=== PATIENT | male | born 1980 | race African-American/Black ===

== ENCOUNTER 2019-06-21 09:57 | Inpatient (IN) | payer MEDICAID ==
[~2019-06-21] VITALS: Ht 172.7 cm; Wt 110.0 kg
[2019-06-21] MEDS ORDERED: normal saline 1000ML IV soln IVB ONE (10:05)
--- NOTE | 2019-06-21 10:35 | NUR ---
Patient to CT
[2019-06-21 10:37] LABS: EOSINOPHILS # (AUTO) 0.1 X10'3 (0-0.9); EOSINOPHILS % (AUTO) 1.7 % (0-6); HEMOGLOBIN 13.4 g/dl (14.0-17.9); LYMPHOCYTES % (AUTO) 18.6 % (21-51); MEAN CORPUSCULAR HEMOGLOBIN 32.2 PG (27.0-31.0); MEAN CORPUSCULAR HGB CONC 32.6 g/dL (33.0-36.5); MEAN CORPUSCULAR VOLUME 98.9 FL (78-98); MEAN PLATELET VOLUME 9.2 FL (7.4-10.4); MONOCYTES # (AUTO) 0.5 X10'3 (0-0.9); MONOCYTES % (AUTO) 8.8 % (2-12); NEUTROPHILS # (AUTO) 3.6 X10'3 (1.8-7.7); NEUTROPHILS % (AUTO) 69.9 % (42-75); PLATELET COUNT 230 X10'3 (140-440); RED BLOOD COUNT 4.15 X10'6 (4.70-6.10); RED CELL DISTRIBUTION WIDTH 14.5 % (11.5-14.5); WHITE BLOOD COUNT 5.2 X10'3 (4.5-11.0)
[2019-06-21 10:47] LABS: ALBUMIN 2.8 G/DL (3.4-5.0); ANION GAP 15 (8-16); BILIRUBIN,TOTAL 0.3 MG/DL (0.1-1.0); BLOOD UREA NITROGEN 45 MG/DL (7-18); BUN/CREATININE RATIO 7.6 (5.4-32.0); CALCIUM 8.6 MG/DL (8.5-10.1); CHLORIDE 108 MMOL/L (99-107); CREATININE 5.94 MG/DL (0.60-1.10); GLUCOSE 98 MG/DL (70-104); POTASSIUM 4.6 MMOL/L (3.5-5.1); SODIUM 140 MMOL/L (135-145); TOTAL CARBON DIOXIDE 17.5 MMOL/L (24-32); TOTAL PROTEIN 6.3 G/DL (6.4-8.2); eGFR 11 ML/MIN
[2019-06-21 10:48] LABS: ALANINE AMINOTRANSFERASE 38 U/L (12-78); ALBUMIN/GLOBULIN RATIO 0.8 (1.1-1.5); ALKALINE PHOSPHATASE 90 IU/L (46-116); ASPARTATE AMINO TRANSFERASE 31 U/L (10-37)
--- NOTE | 2019-06-21 10:58 | NUR ---
Patient back from CT. Urine sample collected and sent to lab.
[2019-06-21] MEDS ORDERED: NO HOME MEDS (11:21)
[2019-06-21 11:23] LABS: URINE AMPHETAMINE SCREEN NEGATIVE (Neg); URINE BARBITUATE SCREEN NEGATIVE (Neg); URINE BENZODIAZEPINES SCREEN NEGATIVE (Neg); URINE CANNABINOID SCREEN POSITIVE (Neg); URINE COCAINE SCREEN NEGATIVE (Neg); URINE METHADONE SCREEN NEGATIVE (Neg); URINE OPIATE SCREEN NEGATIVE (Neg); URINE PHENCYCLIDINE SCREEN NEGATIVE (Neg)
[2019-06-21 11:26] LABS: CLARITY,URINE CLEAR (Clear); COLOR,URINE STRAW (Yellow); GLUCOSE, URINE NEGATIVE (Neg); KETONES,URINE NEGATIVE (Neg); LEUKOCYTE ESTERASE ,URINE NEGATIVE (Neg); NITRITES, URINE NEGATIVE (Neg); OCCULT BLOOD,URINE SMALL (Neg); PROTEIN,URINE 100 mg/dl (Neg); UROBILINOGEN,URINE 0.2 E.U/dL (0.2-1.0)
[2019-06-21 11:28] LABS: UA COLLECTION TYPE CLN CATCH MIDSTREAM
[2019-06-21 11:33] LABS: BACTERIA,URINE NONE SEEN /HPF (Neg); RBC,URINE 0-2 /HPF (0-2); SQUAMOUS EPITHELIAL CELL,UR FEW /LPF (FEW); WBC,URINE 0-4 /HPF (0-4)
[2019-06-21] MEDS ORDERED: mag hydrox/Alum hydrox/simeth 30ml oral suspension PO PRN (11:50)
[2019-06-21] MEDS ORDERED: acetaminophen 650mg rectal suppository RC PRN (11:50)
[2019-06-21] MEDS ORDERED: HYDROcodone/acetaminophen 10/325mg tab PO PRN (11:50)
[2019-06-21] MEDS ORDERED: magnesium hydroxide 30ml (MOM) UD suspension PO PRN (11:50)
[2019-06-21] MEDS ORDERED: HYDROcodone/acetaminophen 5mg/325mg tablet PO PRN (11:50)
[2019-06-21] MEDS ORDERED: acetaminophen 325mg tablet PO PRN (11:50)
[2019-06-21] MEDS ORDERED: bisacodyl 10mg suppository rectal RC PRN (11:50)
[2019-06-21] MEDS ORDERED: diphenhydrAMINE 25mg capsule PO PRN (11:50)
[2019-06-21] MEDS ORDERED: magnesium Cl slow-release 64mg tablet PO PRN (11:50)
[2019-06-21] MEDS ORDERED: ondansetron/PF 4mg/2ml inj IV PRN (11:50)
[2019-06-21] MEDS ORDERED: magnesium 4gm in 100ml NS 100 ML IV PRN (11:50)
[2019-06-21] MEDS ORDERED: potassium CL 10mEq/100ml bag 100 ML IV PRN ×2 (11:50)
[2019-06-21] MEDS ORDERED: potassium Cl 20 mEq SR tablet PO PRN ×2 (11:50)
[2019-06-21] MEDS ORDERED: magnesium 2GM in 50ml NS 50 ML IV PRN (11:50)
[2019-06-21] MEDS ORDERED: amLODIPine 5mg tablet PO SCH (11:55)
--- NOTE | 2019-06-21 11:58 | NUR ---
Vascular called and requests NPO after midnight order placed.
[2019-06-21 12:16] LABS: HEMOGLOBIN A1C 5.6 % (4.5-6.2)
[2019-06-21] MEDS: sodium bicarbonate (8.4%) inj. 75 MEQ in dextrose 5%-water 500 ML IV SCH ×2 (12:34→19:31)
[2019-06-21] MEDS: labetalol 100mg tablet PO SCH ×2 (12:36→21:28)
--- NOTE | 2019-06-21 13:15 | NUR ---
assumed care of pt from Julio C MADRID
--- NOTE | 2019-06-21 14:14 | NUR ---
satellite dish technician at bedside
--- NOTE | 2019-06-21 14:40 | NUR ---
Patient in room ERIC 340. I have received report from ARIEL MADRID and had the opportunity to ask questions and assume patient care.
[2019-06-21 14:51] VITALS: BP 174/104
[2019-06-21 16:20] VITALS: BP 175/118
--- NOTE | 2019-06-21 16:22 | NUR ---
PAGER ID: [phone] MESSAGE: [id number] RE: MA[facility] 340B NEW ER ADMIT, FYI BP STILL 175/118, PT REPORTS ETOH DAILY FOR 2.5 YEARS.
[2019-06-21] MEDS ORDERED: haloperidol 5mg tablet PO PRN (16:25)
[2019-06-21] MEDS ORDERED: hydrALAZINE 20mg/ml inj. IV PRN (16:25)
[2019-06-21] MEDS ORDERED: thiamine inj. 100 MG in normal saline 100ml IV soln 100 ML IV ONE (16:25)
[2019-06-21] MEDS ORDERED: hydrALAZINE 20mg/ml inj. IV ONE (16:25)
[2019-06-21] MEDS ORDERED: cloNIDine 0.1 mg tablet PO PRN (16:25)
[2019-06-21] MEDS ORDERED: haloperidol lactate 5mg/ml inj IM PRN (16:25)
[2019-06-21] MEDS ORDERED: amLODIPine 5mg tablet PO ONE (16:25)
[2019-06-21] MEDS ORDERED: LORazepam 2 mg/ml vial IV PRN (16:25)
--- NOTE | 2019-06-21 18:00 | NUR ---
Problems reprioritized. Patient report given, questions answered & plan of care reviewed with PAT RN.
[2019-06-21 19:00] VITALS: BP 137/80
[2019-06-21] MEDS: acetaminophen 325mg tablet PO PRN (19:27)
--- NOTE | 2019-06-21 19:30 | NUR ---
pt state he normally goes small, frequent amounts Addendum: 06/21/19 at 3778 by Doris Carrizales RN Amended: Links added.
[2019-06-21] MEDS: K and/or MAG REPLACEMENT MC SCH (20:00)
[2019-06-21] MEDS: heparin, porcine 5000 units/ml vial SQ SCH (21:29)
[2019-06-21 22:14] VITALS: BP 128/66
[2019-06-21 23:49] LABS: CLARITY,URINE CLEAR (Clear); COLOR,URINE YELLOW (Yellow); GLUCOSE, URINE NEGATIVE (Neg); KETONES,URINE NEGATIVE (Neg); LEUKOCYTE ESTERASE ,URINE NEGATIVE (Neg); NITRITES, URINE NEGATIVE (Neg); OCCULT BLOOD,URINE TRACE-INTACT (Neg); PH,URINE 6.5 (4.8-8.0); PROTEIN,URINE 100 mg/dl (Neg); UROBILINOGEN,URINE 0.2 E.U/dL (0.2-1.0)
[2019-06-21 23:51] LABS: TOTAL PROTEIN,URINE RANDOM 161.5 MG/DL
[2019-06-21 23:55] LABS: UA COLLECTION TYPE CLN CATCH MIDSTREAM
[2019-06-21 23:58] LABS: BACTERIA,URINE NONE SEEN /HPF (Neg); RBC,URINE NONE SEEN /HPF (0-2); SQUAMOUS EPITHELIAL CELL,UR NONE SEEN /LPF (FEW); WBC,URINE 0-4 /HPF (0-4)
[2019-06-22 00:52] LABS: UA EOSINOPHILS NO EOS /HPF
[2019-06-22] MEDS: sodium bicarbonate (8.4%) inj. 75 MEQ in dextrose 5%-water 500 ML IV SCH ×5 (01:57→22:13)
[2019-06-22 05:00] LABS: BASOPHILS % (AUTO) 0.4 % (0-1); EOSINOPHILS # (AUTO) 0.1 X10'3 (0-0.9); EOSINOPHILS % (AUTO) 1.4 % (0-6); HEMOGLOBIN 12.3 g/dl (14.0-17.9); LYMPHOCYTES # (AUTO) 1.1 X10'3 (1.1-4.8); LYMPHOCYTES % (AUTO) 21.5 % (21-51); MEAN CORPUSCULAR HEMOGLOBIN 32.6 PG (27.0-31.0); MEAN CORPUSCULAR HGB CONC 33.2 g/dL (33.0-36.5); MEAN CORPUSCULAR VOLUME 98.3 FL (78-98); MEAN PLATELET VOLUME 9.1 FL (7.4-10.4); MONOCYTES # (AUTO) 0.3 X10'3 (0-0.9); NEUTROPHILS # (AUTO) 3.7 X10'3 (1.8-7.7); NEUTROPHILS % (AUTO) 70.7 % (42-75); PLATELET COUNT 204 X10'3 (140-440); RED BLOOD COUNT 3.76 X10'6 (4.70-6.10); RED CELL DISTRIBUTION WIDTH 14.7 % (11.5-14.5); WHITE BLOOD COUNT 5.3 X10'3 (4.5-11.0)
[2019-06-22 05:33] LABS: ALANINE AMINOTRANSFERASE 26 U/L (12-78); ALBUMIN 2.3 G/DL (3.4-5.0); ALBUMIN/GLOBULIN RATIO 0.8 (1.1-1.5); ALKALINE PHOSPHATASE 72 IU/L (46-116); ANION GAP 8 (8-16); ASPARTATE AMINO TRANSFERASE 19 U/L (10-37); BILIRUBIN,TOTAL 0.3 MG/DL (0.1-1.0); BLOOD UREA NITROGEN 39 MG/DL (7-18); BUN/CREATININE RATIO 7.3 (5.4-32.0); CALCIUM 7.8 MG/DL (8.5-10.1); CHLORIDE 107 MMOL/L (99-107); CHOLESTEROL 176 MG/DL (0-200); CREATININE 5.36 MG/DL (0.60-1.10); GLUCOSE 130 MG/DL (70-104); HDL CHOLESTEROL 78 MG/DL (35-60); LACTATE DEHYDROGENASE 173 U/L (85-227); MAGNESIUM 1.7 MG/DL (1.5-2.4); PHOSPHORUS 4.2 MG/DL (2.3-4.5); POTASSIUM 3.5 MMOL/L (3.5-5.1); SODIUM 141 MMOL/L (135-145); TOTAL CARBON DIOXIDE 25.6 MMOL/L (24-32); TOTAL PROTEIN 5.2 G/DL (6.4-8.2); eGFR 15 ML/MIN
[2019-06-22 05:34] LABS: CHOL/HDL RATIO 2.3 (0.00-4.99); LDL CHOLESTEROL 65 MG/DL (50-100); TRIGLYCERIDES 166 MG/DL (20-135)
[2019-06-22 07:00] VITALS: BP 151/87
[2019-06-22] MEDS: K and/or MAG REPLACEMENT MC SCH ×2 (08:00→19:50)
[2019-06-22 09:25] VITALS: BP 147/88
[2019-06-22] MEDS: folic acid 1mg tablet PO SCH (09:27)
[2019-06-22] MEDS: thiamine 100mg tablet PO SCH (09:27)
[2019-06-22] MEDS: multivitamins, therapeutics tablet PO SCH (09:28)
[2019-06-22] MEDS: labetalol 100mg tablet PO SCH ×2 (09:31→19:50)
[2019-06-22] MEDS: amLODIPine 5mg tablet PO SCH (09:31)
[2019-06-22] MEDS: heparin, porcine 5000 units/ml vial SQ SCH ×2 (09:32→19:51)
[2019-06-22 11:31] VITALS: BP 150/93
[2019-06-22] MEDS: acetaminophen 325mg tablet PO PRN (16:11)
--- NOTE | 2019-06-22 17:51 | NUR ---
Student Medication Administration: For this medication-pass time frame, all medication were reviewed, dispensed, administered and documented per hospital policy by SN Chivo. Student documentation: I have reviewed and agree with all interventions, assessments performed and documented by SN Chivo.
--- NOTE | 2019-06-22 18:16 | NUR ---
Received report from Bailey MADRID and student RN Chivo. Assumed patient care. Patient is awake and alert on room air in no apparent distress. Call light and items of frequent use within reach. Will continue to monitor for changes.
--- NOTE | 2019-06-22 18:20 | NUR ---
Problems reprioritized. Patient report given, questions answered & plan of care reviewed with Aletha MADRID.
[2019-06-22 18:50] VITALS: BP 151/92
[2019-06-23] VITALS: BP 134/74
[2019-06-23] MEDS: sodium bicarbonate (8.4%) inj. 75 MEQ in dextrose 5%-water 500 ML IV SCH (03:39)
[2019-06-23 05:18] LABS: BASOPHILS % (AUTO) 0.6 % (0-1); EOSINOPHILS # (AUTO) 0.1 X10'3 (0-0.9); EOSINOPHILS % (AUTO) 2.1 % (0-6); HEMATOCRIT 36.3 % (42.0-52.0); HEMOGLOBIN 12.1 g/dl (14.0-17.9); LYMPHOCYTES # (AUTO) 1.2 X10'3 (1.1-4.8); LYMPHOCYTES % (AUTO) 26.3 % (21-51); MEAN CORPUSCULAR HEMOGLOBIN 33.1 PG (27.0-31.0); MEAN CORPUSCULAR HGB CONC 33.4 g/dL (33.0-36.5); MEAN CORPUSCULAR VOLUME 99.1 FL (78-98); MEAN PLATELET VOLUME 9.1 FL (7.4-10.4); MONOCYTES # (AUTO) 0.4 X10'3 (0-0.9); MONOCYTES % (AUTO) 9.2 % (2-12); NEUTROPHILS # (AUTO) 2.8 X10'3 (1.8-7.7); NEUTROPHILS % (AUTO) 61.8 % (42-75); PLATELET COUNT 190 X10'3 (140-440); RED BLOOD COUNT 3.66 X10'6 (4.70-6.10); RED CELL DISTRIBUTION WIDTH 14.5 % (11.5-14.5); WHITE BLOOD COUNT 4.5 X10'3 (4.5-11.0)
[2019-06-23 05:27] LABS: ALANINE AMINOTRANSFERASE 23 U/L (12-78); ALBUMIN 2.2 G/DL (3.4-5.0); ALBUMIN/GLOBULIN RATIO 0.7 (1.1-1.5); ALKALINE PHOSPHATASE 66 IU/L (46-116); ANION GAP 5 (8-16); ASPARTATE AMINO TRANSFERASE 19 U/L (10-37); BILIRUBIN,TOTAL 0.3 MG/DL (0.1-1.0); BLOOD UREA NITROGEN 28 MG/DL (7-18); BUN/CREATININE RATIO 5.5 (5.4-32.0); CALCIUM 8.2 MG/DL (8.5-10.1); CHLORIDE 105 MMOL/L (99-107); CREATININE 5.11 MG/DL (0.60-1.10); GLUCOSE 130 MG/DL (70-104); MAGNESIUM 1.5 MG/DL (1.5-2.4); PHOSPHORUS 3.7 MG/DL (2.3-4.5); POTASSIUM 3.2 MMOL/L (3.5-5.1); SODIUM 141 MMOL/L (135-145); TOTAL CARBON DIOXIDE 31.2 MMOL/L (24-32); TOTAL PROTEIN 5.2 G/DL (6.4-8.2); eGFR 16 ML/MIN
[2019-06-23] MEDS: acetaminophen 325mg tablet PO PRN (05:32)
--- NOTE | 2019-06-23 06:25 | NUR ---
Reported off to Rosmery MADRID. Patient is resting with relaxed and unlabored respirations. Call light and items of frequent use within reach.
--- NOTE | 2019-06-23 06:28 | NUR ---
Patient in room ERIC 340. I have received report from [facility] and had the opportunity to ask questions and assume patient care.
[2019-06-23 07:09] VITALS: BP 131/73
[2019-06-23 07:10] LABS: ANTISTREPTOLYSIN O AB 180.7 IU/mL (0.0-200.0); COMPLEMENT C3, SERUM 116 mg/dL (82-167); COMPLEMENT C4, SERUM 33 mg/dL (14-44); RPR Non Reactive (Non Reactive)
[2019-06-23] MEDS ORDERED: LABE100T5 PO (07:43)
[2019-06-23] MEDS ORDERED: NOR5T PO (07:43)
[2019-06-23] MEDS: K and/or MAG REPLACEMENT MC SCH (08:00)
[2019-06-23 08:17] LABS: ANTINUCLEAR ANTIBODIES Negative (Negative); HBSAG SCREEN Negative (Negative); HEPATITIS C ANTIBODY <0.1 s/co ratio (0.0-0.9)
[2019-06-23] MEDS: thiamine 100mg tablet PO SCH (08:21)
[2019-06-23] MEDS: multivitamins, therapeutics tablet PO SCH (08:21)
[2019-06-23] MEDS: heparin, porcine 5000 units/ml vial SQ SCH (08:21)
[2019-06-23] MEDS: labetalol 100mg tablet PO SCH (08:21)
[2019-06-23] MEDS: amLODIPine 5mg tablet PO SCH (08:21)
[2019-06-23] MEDS: folic acid 1mg tablet PO SCH (08:22)
--- NOTE | 2019-06-23 09:58 | NUR ---
Pt discharged to home, with all belongings, in private vehicle. Discharge instructions and medications reviewed. Pt removed own IV prior to discharge from nursing. Pt instructed to follow up with [facility], phone number provided. This RN attempted to make appointment, but was unable to reach from office. Pt escorted to front lobby by PCT. Unable to locate necklace with pendant prior to discharge. Pt states it was placed in specimen cup by RN on Wednesday, but has been unable to find since then. med/surg director notified.
[2019-06-23] MEDS ORDERED: LORazepam 2 mg/ml vial IV PRN (16:25)
[2019-06-23] MEDS ORDERED: LORazepam 1 MG tablet PO PRN (16:25)
[2019-06-25] MEDS ORDERED: LORazepam 2 mg/ml vial IV PRN (16:25)
[2019-06-25] MEDS ORDERED: LORazepam 1 MG tablet PO PRN (16:25)
[2019-06-27 15:08] LABS: ATYPICAL PANCA <1:20 titer (Neg:<1:20); CYTOPLASMIC (C-ANCA) <1:20 titer (Neg:<1:20); PERINUCLEAR (P-ANCA) <1:20 titer (Neg:<1:20)
== END 2019-06-23 09:55 | disposition home or self-care (01) | DRG 199 ==
LOC: ER 09:58 → ED HOLD 11:48 → SUR 3N 14:30
PROVIDERS: ADMIT Family Medicine; ATTEND Internal Medicine Critical Care Medicine
DX: I16.1 Hypertensive emergency (principal); N17.0 Acute kidney failure with tubular necrosis; E87.2 Acidosis; D64.9 Anemia, unspecified; F10.20 Alcohol dependence, uncomplicated; S06.0X0A Concussion without loss of consciousness, initial encounter; F12.10 Cannabis abuse, uncomplicated; I12.9 Hypertensive chronic kidney disease with stage 1 through stage 4 chronic kidney disease, or unspecified chronic kidney disease; J45.909 Unspecified asthma, uncomplicated; N18.3 Chronic kidney disease, stage 3 (moderate); Z87.09 Personal history of other diseases of the respiratory system; X58.XXXA Exposure to other specified factors, initial encounter; Y93.9 Activity, unspecified; Y92.89 Other specified places as the place of occurrence of the external cause; Y99.8 Other external cause status
CPT/HCPCS: 36415; 70450; 71045; 72125; 80053; 80061; 80305; 81001; 82570; 82948; 83036; 83615; 83735; 84100; 84156; 84300; 85025; 85610; 86038; 86060; 86160; 86256; 86592; 86803; 87081; 87207; 87340; 93005; 93306; 93975; 96360; 97116; 97161; 97530; 99285; G0378; J0360; J1644; J3411; J7030

== ENCOUNTER 2019-08-15 22:01 | Emergency (ER) | payer MEDICAID ==
[~2019-08-15] VITALS: Ht 172.7 cm; Wt 98.6 kg
[~2019-08-15 22:01] MED LIST: LABE100T5 PO; NOR5T PO
[2019-08-15 22:41] LABS: CLARITY,URINE CLEAR (Clear); COLOR,URINE YELLOW (Yellow); GLUCOSE, URINE NEGATIVE (Neg); KETONES,URINE NEGATIVE (Neg); LEUKOCYTE ESTERASE ,URINE NEGATIVE (Neg); NITRITES, URINE NEGATIVE (Neg); OCCULT BLOOD,URINE SMALL (Neg); PROTEIN,URINE >=300 mg/dl (Neg); UROBILINOGEN,URINE 0.2 E.U/dL (0.2-1.0)
[2019-08-15 22:44] LABS: BASOPHILS % (AUTO) 0.6 % (0-1); EOSINOPHILS # (AUTO) 0.2 X10'3 (0-0.9); EOSINOPHILS % (AUTO) 2.8 % (0-6); HEMATOCRIT 36.8 % (42.0-52.0); HEMOGLOBIN 12.2 g/dl (14.0-17.9); LYMPHOCYTES % (AUTO) 15.2 % (21-51); MEAN CORPUSCULAR HEMOGLOBIN 32.5 PG (27.0-31.0); MEAN CORPUSCULAR HGB CONC 33.1 g/dL (33.0-36.5); MEAN CORPUSCULAR VOLUME 98.2 FL (78-98); MEAN PLATELET VOLUME 8.9 FL (7.4-10.4); MONOCYTES # (AUTO) 0.6 X10'3 (0-0.9); MONOCYTES % (AUTO) 8.5 % (2-12); NEUTROPHILS # (AUTO) 4.8 X10'3 (1.8-7.7); NEUTROPHILS % (AUTO) 72.9 % (42-75); PLATELET COUNT 256 X10'3 (140-440); RED BLOOD COUNT 3.75 X10'6 (4.70-6.10); RED CELL DISTRIBUTION WIDTH 13.8 % (11.5-14.5); WHITE BLOOD COUNT 6.6 X10'3 (4.5-11.0)
[2019-08-15 22:44] LABS: UA COLLECTION TYPE CLN CATCH MIDSTREAM
[2019-08-15 22:46] LABS: BACTERIA,URINE NONE SEEN /HPF (Neg); RBC,URINE 0-2 /HPF (0-2); SQUAMOUS EPITHELIAL CELL,UR FEW /LPF (FEW); WBC,URINE NONE SEEN /HPF (0-4)
[2019-08-15 22:55] LABS: ALANINE AMINOTRANSFERASE 15 U/L (12-78); ALBUMIN 3.2 G/DL (3.4-5.0); ALKALINE PHOSPHATASE 78 IU/L (46-116); ANION GAP 9 (8-16); ASPARTATE AMINO TRANSFERASE 11 U/L (10-37); BILIRUBIN,TOTAL 0.3 MG/DL (0.1-1.0); BLOOD UREA NITROGEN 30 MG/DL (7-18); BUN/CREATININE RATIO 4.6 (5.4-32.0); CALCIUM 9.1 MG/DL (8.5-10.1); CHLORIDE 110 MMOL/L (99-107); CREATININE 6.57 MG/DL (0.60-1.10); GLUCOSE 112 MG/DL (70-104); LIPASE 142 U/L (73-393); POTASSIUM 4.2 MMOL/L (3.5-5.1); SODIUM 143 MMOL/L (135-145); TOTAL CARBON DIOXIDE 24.1 MMOL/L (24-32); TOTAL PROTEIN 6.4 G/DL (6.4-8.2); eGFR 12 ML/MIN
[2019-08-15] MEDS ORDERED: ketorolac trometh. 30mg/ml inj. IV ONE (22:55)
[2019-08-15] MEDS ORDERED: normal saline 1000ML IV soln IVB ONE (22:55)
[2019-08-15 22:58] VITALS: BP 141/93
[2019-08-15] MEDS: ondansetron/PF 4mg/2ml inj IV ONE (23:20)
[2019-08-15] MEDS ORDERED: ONDA8TAB13 PO (23:34)
[2019-08-15] MEDS ORDERED: proCHLORperazine 10 MG/2 ml inj IV ONE (23:40)
[2019-08-16] MEDS: ondansetron/PF 4mg/2ml inj IV ONE (00:05)
== END 2019-08-16 01:06 | disposition home or self-care (01) ==
LOC: ER 22:02
DX: E86.0 Dehydration (principal); R11.10 Vomiting, unspecified; R19.7 Diarrhea, unspecified; N18.9 Chronic kidney disease, unspecified; R10.84 Generalized abdominal pain; I12.9 Hypertensive chronic kidney disease with stage 1 through stage 4 chronic kidney disease, or unspecified chronic kidney disease; F12.90 Cannabis use, unspecified, uncomplicated; Z72.89 Other problems related to lifestyle
CPT/HCPCS: 36415; 80053; 81001; 83690; 85025; 96361; 96374; 96375; 99284; J0780; J2405; J7030

== ENCOUNTER 2019-08-21 13:47 | Inpatient (IN) | payer MEDICAID ==
[~2019-08-21] VITALS: Ht 172.7 cm; Wt 97.7 kg
[~2019-08-21 13:47] MED LIST changes: +ONDA8TAB13 PO
[2019-08-21 14:23] LABS: BASOPHILS # (AUTO) 0.1 X10'3 (0-0.2); EOSINOPHILS # (AUTO) 0.2 X10'3 (0-0.9); EOSINOPHILS % (AUTO) 3.4 % (0-6); HEMATOCRIT 36.7 % (42.0-52.0); HEMOGLOBIN 12.2 g/dl (14.0-17.9); LYMPHOCYTES % (AUTO) 15.3 % (21-51); MEAN CORPUSCULAR HEMOGLOBIN 32.4 PG (27.0-31.0); MEAN CORPUSCULAR HGB CONC 33.1 g/dL (33.0-36.5); MEAN CORPUSCULAR VOLUME 97.7 FL (78-98); MEAN PLATELET VOLUME 9.1 FL (7.4-10.4); MONOCYTES # (AUTO) 0.6 X10'3 (0-0.9); MONOCYTES % (AUTO) 9.6 % (2-12); NEUTROPHILS # (AUTO) 4.7 X10'3 (1.8-7.7); NEUTROPHILS % (AUTO) 70.7 % (42-75); PLATELET COUNT 242 X10'3 (140-440); RED BLOOD COUNT 3.76 X10'6 (4.70-6.10); RED CELL DISTRIBUTION WIDTH 13.4 % (11.5-14.5); WHITE BLOOD COUNT 6.7 X10'3 (4.5-11.0)
[2019-08-21 14:40] LABS: ALANINE AMINOTRANSFERASE 18 U/L (12-78); ALBUMIN 3.3 G/DL (3.4-5.0); ALBUMIN/GLOBULIN RATIO 0.9 (1.1-1.5); ALKALINE PHOSPHATASE 81 IU/L (46-116); ANION GAP 9 (8-16); ASPARTATE AMINO TRANSFERASE 11 U/L (10-37); BILIRUBIN,TOTAL 0.3 MG/DL (0.1-1.0); BLOOD UREA NITROGEN 31 MG/DL (7-18); BUN/CREATININE RATIO 4.2 (5.4-32.0); CHLORIDE 104 MMOL/L (99-107); CREATININE 7.37 MG/DL (0.60-1.10); GLUCOSE 98 MG/DL (70-104); POTASSIUM 4.2 MMOL/L (3.5-5.1); SODIUM 137 MMOL/L (135-145); TOTAL CARBON DIOXIDE 23.6 MMOL/L (24-32); TOTAL PROTEIN 6.8 G/DL (6.4-8.2); eGFR 10 ML/MIN
[2019-08-21 14:42] LABS: AMYLASE 109 U/L (25-115); LIPASE 146 U/L (73-393)
[2019-08-21] MEDS ORDERED: ondansetron 4mg rapidly disintigrating tab PO ONE (15:35)
[2019-08-21] MEDS ORDERED: mag hydrox/Alum hydrox/simeth 30ml oral suspension PO ONE (15:35)
[2019-08-21] MEDS ORDERED: LIDOcaine Viscous 15ml cup MM ONE (15:35)
[2019-08-21] MEDS ORDERED: normal saline 1000ml 1,000 ML IV ONE (15:55)
[2019-08-21 16:25] LABS: CLARITY,URINE CLEAR (Clear); GLUCOSE, URINE NEGATIVE (Neg); KETONES,URINE NEGATIVE (Neg); LEUKOCYTE ESTERASE ,URINE NEGATIVE (Neg); NITRITES, URINE NEGATIVE (Neg); OCCULT BLOOD,URINE TRACE-INTACT (Neg); PROTEIN,URINE >=300 mg/dl (Neg); UROBILINOGEN,URINE 0.2 E.U/dL (0.2-1.0)
[2019-08-21 16:29] LABS: COLOR,URINE YELLOW (Yellow); UA COLLECTION TYPE URINAL
[2019-08-21 16:33] LABS: BACTERIA,URINE NONE SEEN /HPF (Neg); MUCUS STRANDS FEW /LPF (Neg); RBC,URINE 0-2 /HPF (0-2); SQUAMOUS EPITHELIAL CELL,UR FEW /LPF (FEW); WBC,URINE 0-4 /HPF (0-4)
[2019-08-21 16:43] LABS: TOTAL PROTEIN,URINE RANDOM 183.6 MG/DL
[2019-08-21] MEDS ORDERED: magnesium 2GM in 50ml NS 50 ML IV PRN (16:45)
[2019-08-21] MEDS ORDERED: HYDROcodone/acetaminophen 5mg/325mg tablet PO PRN (16:45)
[2019-08-21] MEDS ORDERED: potassium Cl 20 mEq SR tablet PO PRN ×2 (16:45)
[2019-08-21] MEDS ORDERED: potassium CL 10mEq/100ml bag 100 ML IV PRN ×2 (16:45)
[2019-08-21] MEDS ORDERED: acetaminophen 650mg rectal suppository RC PRN (16:45)
[2019-08-21] MEDS ORDERED: diphenhydrAMINE 25mg capsule PO PRN (16:45)
[2019-08-21] MEDS ORDERED: bisacodyl 10mg suppository rectal RC PRN (16:45)
[2019-08-21] MEDS ORDERED: mag hydrox/Alum hydrox/simeth 30ml oral suspension PO PRN (16:45)
[2019-08-21] MEDS ORDERED: acetaminophen 325mg tablet PO PRN ×2 (16:45)
[2019-08-21] MEDS ORDERED: magnesium hydroxide 30ml (MOM) UD suspension PO PRN (16:45)
[2019-08-21] MEDS ORDERED: magnesium Cl slow-release 64mg tablet PO PRN (16:45)
[2019-08-21] MEDS ORDERED: morphine 2 MG/ML inj. syringe IV PRN ×2 (16:45)
[2019-08-21] MEDS ORDERED: ondansetron/PF 4mg/2ml inj IV PRN (16:45)
[2019-08-21] MEDS ORDERED: magnesium 4gm in 100ml NS 100 ML IV PRN (16:45)
[2019-08-21 16:47] LABS: HIV ANTIBODY 1&2 RAPID NON-REACTIVE (Neg)
[2019-08-21] MEDS ORDERED: LABE300T2 PO (16:48)
[2019-08-21] MEDS ORDERED: AMLO10TA13 PO (16:48)
[2019-08-21] MEDS: normal saline 1000ml 1,000 ML IV SCH ×2 (17:00→19:13)
[2019-08-21 17:49] LABS: UA EOSINOPHILS NO EOS /HPF
--- NOTE | 2019-08-21 19:40 | NUR ---
recieved report from Chad MADRID who recieved report from ER Nurse.
[2019-08-21] MEDS: K and/or MAG REPLACEMENT MC SCH (19:43)
[2019-08-21] MEDS: heparin, porcine 5000 units/ml vial SQ SCH (19:43)
--- NOTE | 2019-08-21 19:50 | NUR ---
pt arrived to unit with all belongings, tele monitor attached, pt oriented to room VS stable.
[2019-08-21 20:00] VITALS: BP 143/89
[2019-08-21 23:00] VITALS: BP 141/85
[2019-08-22] MEDS: normal saline 1000ml 1,000 ML IV SCH ×3 (00:45→16:15)
[2019-08-22] MEDS: HYDROcodone/acetaminophen 10/325mg tab PO PRN ×3 (00:47→22:47)
[2019-08-22 03:00] VITALS: BP 148/89
[2019-08-22 05:53] LABS: EOSINOPHILS # (AUTO) 0.2 X10'3 (0-0.9); EOSINOPHILS % (AUTO) 3.5 % (0-6); HEMATOCRIT 35.3 % (42.0-52.0); HEMOGLOBIN 11.5 g/dl (14.0-17.9); LYMPHOCYTES % (AUTO) 20.3 % (21-51); MEAN CORPUSCULAR HEMOGLOBIN 31.9 PG (27.0-31.0); MEAN CORPUSCULAR HGB CONC 32.4 g/dL (33.0-36.5); MEAN CORPUSCULAR VOLUME 98.3 FL (78-98); MEAN PLATELET VOLUME 9.5 FL (7.4-10.4); MONOCYTES # (AUTO) 0.6 X10'3 (0-0.9); MONOCYTES % (AUTO) 12.4 % (2-12); NEUTROPHILS % (AUTO) 62.8 % (42-75); PLATELET COUNT 219 X10'3 (140-440); RED BLOOD COUNT 3.59 X10'6 (4.70-6.10); RED CELL DISTRIBUTION WIDTH 13.4 % (11.5-14.5); WHITE BLOOD COUNT 4.7 X10'3 (4.5-11.0)
[2019-08-22 06:07] LABS: ANION GAP 10 (8-16); BLOOD UREA NITROGEN 29 MG/DL (7-18); BUN/CREATININE RATIO 4.4 (5.4-32.0); CALCIUM 8.9 MG/DL (8.5-10.1); CHLORIDE 108 MMOL/L (99-107); CREATININE 6.53 MG/DL (0.60-1.10); GLUCOSE 81 MG/DL (70-104); PHOSPHORUS 4.7 MG/DL (2.3-4.5); POTASSIUM 4.4 MMOL/L (3.5-5.1); SODIUM 140 MMOL/L (135-145); eGFR 12 ML/MIN
[2019-08-22 06:08] LABS: ALANINE AMINOTRANSFERASE 13 U/L (12-78); ALBUMIN 2.8 G/DL (3.4-5.0); ALBUMIN/GLOBULIN RATIO 0.9 (1.1-1.5); ALKALINE PHOSPHATASE 72 IU/L (46-116); ASPARTATE AMINO TRANSFERASE 10 U/L (10-37); BILIRUBIN,TOTAL 0.3 MG/DL (0.1-1.0); CHOL/HDL RATIO 3.3 (0.00-4.99); CHOLESTEROL 144 MG/DL (0-200); HDL CHOLESTEROL 44 MG/DL (35-60); LDL CHOLESTEROL 75 MG/DL (50-100); TOTAL PROTEIN 5.9 G/DL (6.4-8.2); TRIGLYCERIDES 166 MG/DL (20-135)
--- NOTE | 2019-08-22 06:08 | NUR ---
Problems reprioritized. Patient report given, questions answered & plan of care reviewed with Brooklyn MADRID.
--- NOTE | 2019-08-22 06:22 | NUR ---
Patient in room PCU 3024. I have received report from Antolin MADRID and had the opportunity to ask questions and assume patient care. Patient resting with eyes closed on right side.
[2019-08-22 07:01] VITALS: BP 145/92
[2019-08-22] MEDS: heparin, porcine 5000 units/ml vial SQ SCH ×2 (07:14→19:25)
[2019-08-22] MEDS: K and/or MAG REPLACEMENT MC SCH ×2 (08:00→20:00)
[2019-08-22 11:00] VITALS: BP 153/82
[2019-08-22] MEDS: amLODIPine 5mg tablet PO SCH (11:53)
[2019-08-22 15:00] VITALS: BP 149/95
[2019-08-22 18:00] VITALS: BP 137/82
--- NOTE | 2019-08-22 18:24 | NUR ---
Problems reprioritized. Patient report given, questions answered & plan of care reviewed with [place] RN.
--- NOTE | 2019-08-22 18:30 | NUR ---
Patient in room PCU 3024. I have received report from [place] MADRID and had the opportunity to ask questions and assume patient care.
[2019-08-22] MEDS: labetalol 100mg tablet PO SCH (19:26)
[2019-08-22 23:00] VITALS: BP 126/78
[2019-08-23] MEDS: normal saline 1000ml 1,000 ML IV SCH ×4 (00:45→22:18)
[2019-08-23 02:55] VITALS: BP 138/87
[2019-08-23 05:49] LABS: BASOPHILS % (AUTO) 0.8 % (0-1); EOSINOPHILS # (AUTO) 0.2 X10'3 (0-0.9); EOSINOPHILS % (AUTO) 3.4 % (0-6); HEMATOCRIT 35.2 % (42.0-52.0); HEMOGLOBIN 11.5 g/dl (14.0-17.9); LYMPHOCYTES % (AUTO) 21.6 % (21-51); MEAN CORPUSCULAR HGB CONC 32.6 g/dL (33.0-36.5); MEAN CORPUSCULAR VOLUME 98.2 FL (78-98); MEAN PLATELET VOLUME 9.5 FL (7.4-10.4); MONOCYTES # (AUTO) 0.6 X10'3 (0-0.9); NEUTROPHILS # (AUTO) 2.9 X10'3 (1.8-7.7); NEUTROPHILS % (AUTO) 61.2 % (42-75); PLATELET COUNT 223 X10'3 (140-440); RED BLOOD COUNT 3.59 X10'6 (4.70-6.10); RED CELL DISTRIBUTION WIDTH 13.5 % (11.5-14.5); WHITE BLOOD COUNT 4.7 X10'3 (4.5-11.0)
[2019-08-23 05:59] LABS: ALANINE AMINOTRANSFERASE 14 U/L (12-78); ALBUMIN 2.8 G/DL (3.4-5.0); ALBUMIN/GLOBULIN RATIO 0.9 (1.1-1.5); ALKALINE PHOSPHATASE 70 IU/L (46-116); ANION GAP 6 (8-16); ASPARTATE AMINO TRANSFERASE 12 U/L (10-37); BILIRUBIN,TOTAL 0.2 MG/DL (0.1-1.0); BLOOD UREA NITROGEN 25 MG/DL (7-18); BUN/CREATININE RATIO 4.4 (5.4-32.0); CALCIUM 8.5 MG/DL (8.5-10.1); CHLORIDE 111 MMOL/L (99-107); CREATININE 5.64 MG/DL (0.60-1.10); GLUCOSE 89 MG/DL (70-104); MAGNESIUM 1.9 MG/DL (1.5-2.4); PHOSPHORUS 4.2 MG/DL (2.3-4.5); POTASSIUM 4.3 MMOL/L (3.5-5.1); SODIUM 142 MMOL/L (135-145); TOTAL PROTEIN 5.8 G/DL (6.4-8.2); eGFR 14 ML/MIN
--- NOTE | 2019-08-23 06:17 | NUR ---
Problems reprioritized. Patient report given, questions answered & plan of care reviewed with Eddie MADRID.
--- NOTE | 2019-08-23 06:24 | NUR ---
Patient in room PCU 3024. I have received report from [place] RN and had the opportunity to ask questions and assume patient care.
[2019-08-23 07:00] VITALS: BP 154/95
[2019-08-23] MEDS: heparin, porcine 5000 units/ml vial SQ SCH ×2 (07:27→19:31)
[2019-08-23] MEDS: labetalol 100mg tablet PO SCH ×2 (07:28→19:30)
[2019-08-23] MEDS: HYDROcodone/acetaminophen 10/325mg tab PO PRN ×3 (07:28→23:21)
[2019-08-23] MEDS: amLODIPine 5mg tablet PO SCH (07:28)
[2019-08-23] MEDS: K and/or MAG REPLACEMENT MC SCH ×2 (08:00→20:00)
[2019-08-23 11:00] VITALS: BP 119/81
--- NOTE | 2019-08-23 14:48 | NUR ---
Consult re: evaluate patient for renal diet. Patient's sodium 142 WNL, K 4.3 WNL, Phos 4.2 WNL, Mag 1.9 WNL, BUN/CR 25H/5.64 H, TG 166 H, eGFR 14. Currently on a renal diet. Nephrology is following. H/O EtOH, quit one week ago. Per MD note patient likely has stage V CKD d/t HTN, will hydrate patient, and may need dialysis and transplant in the future. Great appetite, eating well, 100% PO intake. Will continue to follow patient and monitor MD progress note for stage of CKD and provide apppropriate renal education depending on course of admission. Will follow. Addendum: 08/23/19 at [address] Amended: Links added.
[2019-08-23 15:00] VITALS: BP 154/86
[2019-08-23 18:00] VITALS: BP 157/95
--- NOTE | 2019-08-23 18:30 | NUR ---
Problems reprioritized. Patient report given, questions answered & plan of care reviewed with Michelle AMDRID.
[2019-08-23 22:00] VITALS: BP 148/90
[2019-08-24 02:00] VITALS: BP 150/99
[2019-08-24 05:38] LABS: BASOPHILS % (AUTO) 0.7 % (0-1); EOSINOPHILS # (AUTO) 0.2 X10'3 (0-0.9); EOSINOPHILS % (AUTO) 3.9 % (0-6); HEMATOCRIT 35.4 % (42.0-52.0); HEMOGLOBIN 11.5 g/dl (14.0-17.9); LYMPHOCYTES # (AUTO) 1.1 X10'3 (1.1-4.8); LYMPHOCYTES % (AUTO) 22.6 % (21-51); MEAN CORPUSCULAR HEMOGLOBIN 31.7 PG (27.0-31.0); MEAN CORPUSCULAR HGB CONC 32.5 g/dL (33.0-36.5); MEAN CORPUSCULAR VOLUME 97.6 FL (78-98); MEAN PLATELET VOLUME 9.2 FL (7.4-10.4); MONOCYTES # (AUTO) 0.5 X10'3 (0-0.9); MONOCYTES % (AUTO) 10.4 % (2-12); NEUTROPHILS # (AUTO) 3.1 X10'3 (1.8-7.7); NEUTROPHILS % (AUTO) 62.4 % (42-75); PLATELET COUNT 236 X10'3 (140-440); RED BLOOD COUNT 3.62 X10'6 (4.70-6.10); RED CELL DISTRIBUTION WIDTH 13.7 % (11.5-14.5)
[2019-08-24] MEDS: normal saline 1000ml 1,000 ML IV SCH (05:49)
[2019-08-24 06:00] VITALS: BP 161/102
[2019-08-24 06:06] LABS: ALANINE AMINOTRANSFERASE 15 U/L (12-78); ALBUMIN 2.7 G/DL (3.4-5.0); ALBUMIN/GLOBULIN RATIO 0.9 (1.1-1.5); ALKALINE PHOSPHATASE 68 IU/L (46-116); ANION GAP 8 (8-16); ASPARTATE AMINO TRANSFERASE 14 U/L (10-37); BILIRUBIN,TOTAL 0.3 MG/DL (0.1-1.0); BLOOD UREA NITROGEN 21 MG/DL (7-18); BUN/CREATININE RATIO 4.1 (5.4-32.0); CALCIUM 8.5 MG/DL (8.5-10.1); CHLORIDE 112 MMOL/L (99-107); CREATININE 5.12 MG/DL (0.60-1.10); GLUCOSE 90 MG/DL (70-104); MAGNESIUM 1.7 MG/DL (1.5-2.4); PHOSPHORUS 3.9 MG/DL (2.3-4.5); POTASSIUM 4.4 MMOL/L (3.5-5.1); SODIUM 142 MMOL/L (135-145); TOTAL CARBON DIOXIDE 22.4 MMOL/L (24-32); TOTAL PROTEIN 5.8 G/DL (6.4-8.2); eGFR 15 ML/MIN
--- NOTE | 2019-08-24 06:14 | NUR ---
Problems reprioritized. Patient report given, questions answered & plan of care reviewed with [facility].
[2019-08-24] MEDS: amLODIPine 5mg tablet PO SCH (07:50)
[2019-08-24] MEDS: labetalol 100mg tablet PO SCH (07:51)
[2019-08-24] MEDS: heparin, porcine 5000 units/ml vial SQ SCH (07:51)
[2019-08-24] MEDS: K and/or MAG REPLACEMENT MC SCH (08:00)
[2019-08-24] MEDS ORDERED: cloNIDine 0.1 mg tablet PO ONE (10:30)
[2019-08-24 11:00] VITALS: BP 121/76
--- NOTE | 2019-08-24 12:39 | NUR ---
F/u: Pt seen by RD for written/verbal CKD V diet ed review. RD encouraged routine MVI supplementation at home given recently stopping etoh. RD also encouraged pt to request specific mineral recommendations upon nephrology visit post-op given electrolytes WNL at this time and PO 100% meals. RD did review that IF pt to start HD then will be followed by dialysis RD who will make routine recommendations. Pt reports constipation no BM 3 days and declined suppository today since would like to "wait for last resort"; typically has BMx3 daily at home. RD d/w RN regarding routine PO bowel care if MD agreeable given constipation and reported abdominal discomfort at this time. Addendum: 08/24/19 at [address] Amended: Links added.
[2019-08-24] MEDS ORDERED: CLON0.1T2 PO (14:50)
[2019-08-24] MEDS ORDERED: NOR5T PO (14:50)
[2019-08-24 15:00] VITALS: BP 126/72
--- NOTE | 2019-08-24 15:40 | NUR ---
Pharmacist Gabby from [facility] suggested she input Amplodipine 10mg tab for 10mg daily good for 30 days. I agreed stating I will speak with ordering MD to confirm and will call back if there are concerns
--- NOTE | 2019-08-24 15:40 | NUR ---
PAGER ID: [phone] MESSAGE: [id number] Rayshawn Whiting Just clarifying DC prescriptions. Amlodipine 5mg tab 10mg dose daily dispense 30 tabs for 15 days. Is this correct? Preferred pharm called to confirm. [phone]
--- NOTE | 2019-08-24 15:45 | NUR ---
Per Dr. Maier Amlodipine 10 mg tab PO daily for 30 days.
--- NOTE | 2019-08-24 16:00 | NUR ---
Per MD orders patient stable for discharge home. New prescriptions called in to pharmacy of preference. Discharge instructions reviewed with patient at bedside; all questions answered to patient satisfaction. PIV discontinued cannula intact. Tele monitoring discontinued. All belongings sent with patient. Ambulated to private vehicle accompanied by family/friend
[2019-08-24] MEDS ORDERED: cloNIDine 0.1 mg tablet PO SCH (20:00)
== END 2019-08-24 16:00 | disposition home or self-care (01) | DRG 469 ==
LOC: ER 13:48 → ED HOLD 16:43 → PCU 3S 19:52
PROVIDERS: ADMIT Family Medicine; ATTEND Family Medicine
DX: N17.0 Acute kidney failure with tubular necrosis (principal); J45.909 Unspecified asthma, uncomplicated; N18.6 End stage renal disease; I12.0 Hypertensive chronic kidney disease with stage 5 chronic kidney disease or end stage renal disease; F12.10 Cannabis abuse, uncomplicated; F10.20 Alcohol dependence, uncomplicated; Z79.899 Other long term (current) drug therapy; R80.9 Proteinuria, unspecified
CPT/HCPCS: 36415; 76775; 80053; 80061; 81001; 82150; 82570; 83036; 83690; 83735; 84100; 84156; 84300; 85025; 86703; 87081; 87207; 96360; 99285; G0378; J1644; J2270; J2405; J7030

== ENCOUNTER 2019-11-06 20:32 | Emergency (ER) | payer MEDICAID ==
[~2019-11-06] VITALS: Ht 172.7 cm; Wt 90.9 kg
[~2019-11-06 20:32] MED LIST changes: +CLON0.1T2 PO; -LABE100T5 PO; +LABE300T2 PO; -ONDA8TAB13 PO
[2019-11-06 21:11] LABS: BASOPHILS # (AUTO) 0.1 X10'3 (0-0.2); BASOPHILS % (AUTO) 0.9 % (0-1); EOSINOPHILS # (AUTO) 0.2 X10'3 (0-0.9); EOSINOPHILS % (AUTO) 2.4 % (0-6); HEMATOCRIT 37.7 % (42.0-52.0); HEMOGLOBIN 12.5 g/dl (14.0-17.9); LYMPHOCYTES # (AUTO) 2.1 X10'3 (1.1-4.8); LYMPHOCYTES % (AUTO) 31.1 % (21-51); MEAN CORPUSCULAR HEMOGLOBIN 30.9 PG (27.0-31.0); MEAN CORPUSCULAR HGB CONC 33.1 g/dL (33.0-36.5); MEAN CORPUSCULAR VOLUME 93.4 FL (78-98); MEAN PLATELET VOLUME 9.5 FL (7.4-10.4); MONOCYTES # (AUTO) 0.5 X10'3 (0-0.9); NEUTROPHILS % (AUTO) 58.6 % (42-75); PLATELET COUNT 255 X10'3 (140-440); RED BLOOD COUNT 4.04 X10'6 (4.70-6.10); RED CELL DISTRIBUTION WIDTH 12.8 % (11.5-14.5); WHITE BLOOD COUNT 6.9 X10'3 (4.5-11.0)
[2019-11-06 21:26] LABS: ALANINE AMINOTRANSFERASE 9 U/L (12-78); ALBUMIN 3.5 G/DL (3.4-5.0); ALBUMIN/GLOBULIN RATIO 1.1 (1.1-1.5); ALKALINE PHOSPHATASE 82 IU/L (46-116); ANION GAP 13 (8-16); ASPARTATE AMINO TRANSFERASE 1 U/L (10-37); BILIRUBIN,TOTAL 0.2 MG/DL (0.1-1.0); BLOOD UREA NITROGEN 55 MG/DL (7-18); BUN/CREATININE RATIO 8.2 (5.4-32.0); CALCIUM 8.3 MG/DL (8.5-10.1); CHLORIDE 107 MMOL/L (99-107); CREATININE 6.71 MG/DL (0.60-1.10); GLUCOSE 94 MG/DL (70-104); LIPASE 228 U/L (73-393); POTASSIUM 4.9 MMOL/L (3.5-5.1); SODIUM 140 MMOL/L (135-145); TOTAL CARBON DIOXIDE 20.4 MMOL/L (24-32); TOTAL PROTEIN 6.7 G/DL (6.4-8.2); eGFR 11 ML/MIN
[2019-11-06 22:12] LABS: PARTIAL THROMBOPLASTIN TIME 24 SECONDS (22-32)
[2019-11-06] MEDS ORDERED: acetaminophen 325mg tablet PO ONE (22:25)
[2019-11-06 22:42] VITALS: BP 119/83
[2019-11-06 23:02] LABS: CLARITY,URINE CLEAR (Clear); COLOR,URINE YELLOW (Yellow); GLUCOSE, URINE NEGATIVE (Neg); KETONES,URINE NEGATIVE (Neg); LEUKOCYTE ESTERASE ,URINE NEGATIVE (Neg); NITRITES, URINE NEGATIVE (Neg); OCCULT BLOOD,URINE NEGATIVE (Neg); PH,URINE 5.5 (4.8-8.0); PROTEIN,URINE >=300 mg/dl (Neg); UROBILINOGEN,URINE 0.2 E.U/dL (0.2-1.0)
[2019-11-06] MEDS ORDERED: AMLO10TA13 PO (23:02)
[2019-11-06] MEDS ORDERED: LABE300T2 PO (23:02)
[2019-11-06 23:03] LABS: UA COLLECTION TYPE CLN CATCH MIDSTREAM
[2019-11-06 23:10] LABS: SQUAMOUS EPITHELIAL CELL,UR FEW /LPF (FEW); WBC,URINE 0-4 /HPF (0-4)
[2019-11-06 23:11] LABS: RBC,URINE NONE SEEN /HPF (0-2)
[2019-11-06 23:12] LABS: BACTERIA,URINE 1+ /HPF (Neg); HYALINE CASTS 0-3 /LPF (NEGATIVE)
[2019-11-06] MEDS ORDERED: CLON-529 PO (23:13)
== END 2019-11-06 23:37 | disposition home or self-care (01) ==
LOC: ER 20:33
DX: N18.6 End stage renal disease (principal); I12.0 Hypertensive chronic kidney disease with stage 5 chronic kidney disease or end stage renal disease; F12.90 Cannabis use, unspecified, uncomplicated; Z88.8 Allergy status to other drugs, medicaments and biological substances; Z99.2 Dependence on renal dialysis; Z79.899 Other long term (current) drug therapy; Z79.82 Long term (current) use of aspirin
CPT/HCPCS: 36415; 80053; 81001; 82948; 83690; 85025; 85610; 85730; 99283

== ENCOUNTER 2019-11-17 12:39 | Emergency (ER) | payer MEDICAID ==
[~2019-11-17] VITALS: Ht 172.7 cm; Wt 90.9 kg
[~2019-11-17 12:39] MED LIST changes: +AMLO10TA13 PO; +CLON-529 PO
[2019-11-17 14:24] LABS: BASOPHILS % (AUTO) 0.8 % (0-1); EOSINOPHILS # (AUTO) 0.1 X10'3 (0-0.9); HEMATOCRIT 36.5 % (42.0-52.0); HEMOGLOBIN 12.1 g/dl (14.0-17.9); LYMPHOCYTES # (AUTO) 1.3 X10'3 (1.1-4.8); LYMPHOCYTES % (AUTO) 24.5 % (21-51); MEAN CORPUSCULAR HEMOGLOBIN 31.2 PG (27.0-31.0); MEAN CORPUSCULAR HGB CONC 33.2 g/dL (33.0-36.5); MEAN CORPUSCULAR VOLUME 94.1 FL (78-98); MEAN PLATELET VOLUME 9.3 FL (7.4-10.4); MONOCYTES # (AUTO) 0.4 X10'3 (0-0.9); MONOCYTES % (AUTO) 7.8 % (2-12); NEUTROPHILS # (AUTO) 3.4 X10'3 (1.8-7.7); NEUTROPHILS % (AUTO) 64.9 % (42-75); PLATELET COUNT 246 X10'3 (140-440); RED BLOOD COUNT 3.88 X10'6 (4.70-6.10); RED CELL DISTRIBUTION WIDTH 12.8 % (11.5-14.5); WHITE BLOOD COUNT 5.2 X10'3 (4.5-11.0)
[2019-11-17 14:44] LABS: ALANINE AMINOTRANSFERASE 17 U/L (12-78); ALBUMIN 3.6 G/DL (3.4-5.0); ALBUMIN/GLOBULIN RATIO 1.1 (1.1-1.5); ALKALINE PHOSPHATASE 79 IU/L (46-116); ANION GAP 12 (8-16); ASPARTATE AMINO TRANSFERASE 12 U/L (10-37); BILIRUBIN,TOTAL 0.3 MG/DL (0.1-1.0); BLOOD UREA NITROGEN 62 MG/DL (7-18); BUN/CREATININE RATIO 9.6 (5.4-32.0); CALCIUM 9.2 MG/DL (8.5-10.1); CHLORIDE 106 MMOL/L (99-107); CREATININE 6.46 MG/DL (0.60-1.10); GLUCOSE 79 MG/DL (70-104); POTASSIUM 5.3 MMOL/L (3.5-5.1); SODIUM 139 MMOL/L (135-145); TOTAL CARBON DIOXIDE 20.9 MMOL/L (24-32); TOTAL PROTEIN 6.9 G/DL (6.4-8.2); eGFR 12 ML/MIN
[2019-11-17 14:50] VITALS: BP 142/104
== END 2019-11-17 15:53 | disposition home or self-care (01) ==
LOC: ER 12:40
DX: I12.0 Hypertensive chronic kidney disease with stage 5 chronic kidney disease or end stage renal disease (principal); N18.6 End stage renal disease; J45.909 Unspecified asthma, uncomplicated; F12.90 Cannabis use, unspecified, uncomplicated; Z88.0 Allergy status to penicillin; Z91.018 Allergy to other foods; Z79.899 Other long term (current) drug therapy
CPT/HCPCS: 36415; 80053; 85025; 99283

== ENCOUNTER 2019-12-26 13:22 | Emergency (ER) | payer MEDICAID ==
[~2019-12-26] VITALS: Ht 172.7 cm; Wt 90.9 kg
[2019-12-26] MEDS ORDERED: morphine 4 MG/ML inj SYRINge IV PRN (15:05)
[2019-12-26] MEDS ORDERED: famotidine/PF 10 mg/ml inj IV ONE (15:05)
[2019-12-26] MEDS ORDERED: normal saline 1000ML IV soln IVB ONE (15:05)
[2019-12-26] MEDS ORDERED: pantoprazole 40 MG vial IV ONE (15:05)
[2019-12-26] MEDS ORDERED: ondansetron/PF 4mg/2ml inj IV ONE (15:05)
[2019-12-26 15:40] VITALS: BP 157/98
[2019-12-26 15:58] LABS: BASOPHILS % (AUTO) 0.9 % (0-1); EOSINOPHILS # (AUTO) 0.1 X10'3 (0-0.9); EOSINOPHILS % (AUTO) 1.3 % (0-6); HEMATOCRIT 36.6 % (42.0-52.0); HEMOGLOBIN 11.8 g/dl (14.0-17.9); LYMPHOCYTES % (AUTO) 17.9 % (21-51); MEAN CORPUSCULAR HEMOGLOBIN 29.6 PG (27.0-31.0); MEAN CORPUSCULAR HGB CONC 32.2 g/dL (33.0-36.5); MEAN CORPUSCULAR VOLUME 91.8 FL (78-98); MEAN PLATELET VOLUME 9.1 FL (7.4-10.4); MONOCYTES # (AUTO) 0.3 X10'3 (0-0.9); MONOCYTES % (AUTO) 6.5 % (2-12); NEUTROPHILS # (AUTO) 3.9 X10'3 (1.8-7.7); NEUTROPHILS % (AUTO) 73.4 % (42-75); PLATELET COUNT 241 X10'3 (140-440); RED BLOOD COUNT 3.99 X10'6 (4.70-6.10); RED CELL DISTRIBUTION WIDTH 12.9 % (11.5-14.5); WHITE BLOOD COUNT 5.3 X10'3 (4.5-11.0)
[2019-12-26] MEDS ORDERED: OMEP20CA15 PO (16:01)
[2019-12-26] MEDS ORDERED: ONDA4TAB6 PO (16:01)
[2019-12-26 16:10] LABS: ALANINE AMINOTRANSFERASE 17 U/L (12-78); ALBUMIN 3.4 G/DL (3.4-5.0); ALBUMIN/GLOBULIN RATIO 1.1 (1.1-1.5); ALKALINE PHOSPHATASE 94 IU/L (46-116); ANION GAP 11 (8-16); ASPARTATE AMINO TRANSFERASE 13 U/L (10-37); BILIRUBIN,TOTAL 0.3 MG/DL (0.1-1.0); BLOOD UREA NITROGEN 30 MG/DL (7-18); BUN/CREATININE RATIO 4.8 (5.4-32.0); CALCIUM 9.3 MG/DL (8.5-10.1); CHLORIDE 108 MMOL/L (99-107); GLUCOSE 83 MG/DL (70-104); LIPASE 88 U/L (73-393); POTASSIUM 4.8 MMOL/L (3.5-5.1); SODIUM 142 MMOL/L (135-145); TOTAL CARBON DIOXIDE 23.1 MMOL/L (24-32); TOTAL PROTEIN 6.5 G/DL (6.4-8.2); eGFR 12 ML/MIN
== END 2019-12-26 16:20 | disposition home or self-care (01) ==
LOC: ER 13:23
DX: R10.84 Generalized abdominal pain (principal); I12.9 Hypertensive chronic kidney disease with stage 1 through stage 4 chronic kidney disease, or unspecified chronic kidney disease; N18.9 Chronic kidney disease, unspecified; F12.90 Cannabis use, unspecified, uncomplicated; Z72.89 Other problems related to lifestyle; Z88.0 Allergy status to penicillin; Z91.018 Allergy to other foods; Z79.899 Other long term (current) drug therapy
CPT/HCPCS: 36415; 74176; 80053; 83690; 85025; 96374; 96375; 99284; C9113; J2405; J3490; J7030

== ENCOUNTER 2020-02-10 13:48 | Emergency (ER) | payer MEDICAID ==
[~2020-02-10] VITALS: Ht 172.7 cm; Wt 100.0 kg
[~2020-02-10 13:48] MED LIST changes: +OMEP20CA15 PO; +ONDA4TAB6 PO
[2020-02-10 15:07] LABS: BASOPHILS % (AUTO) 0.6 % (0-1); EOSINOPHILS # (AUTO) 0.1 X10'3 (0-0.9); EOSINOPHILS % (AUTO) 1.3 % (0-6); HEMATOCRIT 33.2 % (42.0-52.0); HEMOGLOBIN 10.9 g/dl (14.0-17.9); LYMPHOCYTES % (AUTO) 19.7 % (21-51); MEAN CORPUSCULAR HEMOGLOBIN 30.1 PG (27.0-31.0); MEAN CORPUSCULAR HGB CONC 32.7 g/dL (33.0-36.5); MEAN PLATELET VOLUME 9.5 FL (7.4-10.4); MONOCYTES # (AUTO) 0.3 X10'3 (0-0.9); MONOCYTES % (AUTO) 6.7 % (2-12); NEUTROPHILS # (AUTO) 3.6 X10'3 (1.8-7.7); NEUTROPHILS % (AUTO) 71.7 % (42-75); PLATELET COUNT 249 X10'3 (140-440); RED BLOOD COUNT 3.61 X10'6 (4.70-6.10); RED CELL DISTRIBUTION WIDTH 14.3 % (11.5-14.5)
[2020-02-10 15:18] LABS: PARTIAL THROMBOPLASTIN TIME 23 SECONDS (22-32)
[2020-02-10 15:21] LABS: ALANINE AMINOTRANSFERASE 22 U/L (12-78); ALKALINE PHOSPHATASE 87 IU/L (46-116); ANION GAP 8 (8-16); ASPARTATE AMINO TRANSFERASE 10 U/L (10-37); BILIRUBIN,TOTAL 0.2 MG/DL (0.1-1.0); BLOOD UREA NITROGEN 54 MG/DL (7-18); BUN/CREATININE RATIO 9.2 (5.4-32.0); CALCIUM 8.3 MG/DL (8.5-10.1); CHLORIDE 112 MMOL/L (99-107); CREATININE 5.86 MG/DL (0.60-1.10); GLUCOSE 116 MG/DL (70-104); POTASSIUM 4.8 MMOL/L (3.5-5.1); SODIUM 142 MMOL/L (135-145); TOTAL CARBON DIOXIDE 22.4 MMOL/L (24-32); TOTAL PROTEIN 6.1 G/DL (6.4-8.2); eGFR 13 ML/MIN
[2020-02-10 15:30] LABS: LIPASE 168 U/L (73-393); MAGNESIUM 2.2 MG/DL (1.5-2.4)
[2020-02-10 17:48] VITALS: BP 138/84
== END 2020-02-10 17:56 | disposition home or self-care (01) ==
LOC: ER 13:48
DX: R10.10 Upper abdominal pain, unspecified (principal); R10.11 Right upper quadrant pain; R10.32 Left lower quadrant pain; I12.9 Hypertensive chronic kidney disease with stage 1 through stage 4 chronic kidney disease, or unspecified chronic kidney disease; N18.9 Chronic kidney disease, unspecified; F12.90 Cannabis use, unspecified, uncomplicated; Z72.89 Other problems related to lifestyle; Z88.0 Allergy status to penicillin; Z91.018 Allergy to other foods; Z79.899 Other long term (current) drug therapy
CPT/HCPCS: 36415; 71045; 76700; 80053; 83690; 83735; 83880; 84484; 85025; 85610; 85730; 93005; 99285

== ENCOUNTER 2022-10-19 06:46 | Day surgery (SDC) | payer MEDICARE, MEDICAID ==
[~2022-10-19] VITALS: Ht 172.7 cm; Wt 73.3 kg
[2022-10-19] VITALS (8 sets, daily range): BP systolic 107–123; BP diastolic 66–79; PULSE 70–80; RESP 12–16; TEMP 98.2; O2SAT 96–99
[~2022-10-19 06:46] MED LIST changes: -LABE300T2 PO; +LABE300T4 PO
[2022-10-19] MEDS ORDERED: normal saline 1000ml 1,000 ML IV PRN (07:05)
[2022-10-19] MEDS ORDERED: CLONIDINE 0.1 MG (07:10)
[2022-10-19] MEDS ORDERED: CINA30TA2 PO (07:13)
[2022-10-19 07:50] LABS: ALBUMIN 3.8 G/DL (3.4-5.0); ANION GAP 11 (8-16); BLOOD UREA NITROGEN 43 MG/DL (7-18); BUN/CREATININE RATIO 2.9 (10.0-20.0); CALCIUM 9.3 MG/DL (8.5-10.1); CHLORIDE 99 MMOL/L (99-107); CREATININE 14.91 MG/DL (0.60-1.10); GLUCOSE 87 MG/DL (70-104); POTASSIUM 4.7 MMOL/L (3.5-5.1); SODIUM 139 MMOL/L (135-145); TOTAL CARBON DIOXIDE 28.7 MMOL/L (24-32); eCRCL 6 ML/MIN; eGFR 4 ML/MIN
[2022-10-19 07:52] LABS: BASOPHILS # (AUTO) 0.1 X10'3 (0-0.2); EOSINOPHILS # (AUTO) 0.1 X10'3 (0-0.9); EOSINOPHILS % (AUTO) 2.2 % (0-6); HEMATOCRIT 38.2 % (42.0-52.0); HEMOGLOBIN 12.6 g/dl (14.0-17.9); INR 1.1 INR; LYMPHOCYTES # (AUTO) 1.6 X10'3 (1.1-4.8); LYMPHOCYTES % (AUTO) 29.8 % (21-51); MEAN CORPUSCULAR HEMOGLOBIN 31.7 PG (27.0-31.0); MEAN CORPUSCULAR HGB CONC 33.1 g/dL (33.0-36.5); MEAN CORPUSCULAR VOLUME 95.8 FL (78-98); MEAN PLATELET VOLUME 8.4 FL (7.4-10.4); MONOCYTES # (AUTO) 0.5 X10'3 (0-0.9); MONOCYTES % (AUTO) 9.5 % (2-12); NEUTROPHILS # (AUTO) 3.2 X10'3 (1.8-7.7); NEUTROPHILS % (AUTO) 57.5 % (42-75); PLATELET COUNT 203 X10'3 (140-440); PROTHROMBIN TIME 11.3 SECONDS (9.0-12.0); RED BLOOD COUNT 3.99 X10'6 (4.70-6.10); RED CELL DISTRIBUTION WIDTH 14.3 % (11.5-14.5); WHITE BLOOD COUNT 5.5 X10'3 (4.5-11.0)
[2022-10-19] MEDS ORDERED: fentaNYL/PF 50MCG/1 ML 2ML syringe ONE ×2 (08:15→08:53)
[2022-10-19] MEDS ORDERED: LIDOcaine 1% 30ml preserv. free vial ONE (08:16)
[2022-10-19] MEDS ORDERED: heparin 1,000 UNITS/NS 500ml 500 ML ONE (08:16)
[2022-10-19] MEDS ORDERED: iohexol 300mg/ml 100ml inj. ONE (08:16)
[2022-10-19] MEDS ORDERED: diphenhydrAMINE 50 mg/ml inj ONE (08:34)
[2022-10-19] MEDS ORDERED: tPA-cathflo 2 MG/2 ml IV flush ONE (08:55)
[2022-10-19] MEDS ORDERED: heparin 1,000unit/ml 10ml vial 10 ML ONE (09:00)
== END 2022-10-19 12:35 | disposition home or self-care (01) ==
LOC: SSTAY O 06:46
PROVIDERS: ATTEND Radiology Vascular & Interventional Radiology
DX: T82.868A Thrombosis due to vascular prosthetic devices, implants and grafts, initial encounter (principal); I12.0 Hypertensive chronic kidney disease with stage 5 chronic kidney disease or end stage renal disease; N18.6 End stage renal disease; F12.90 Cannabis use, unspecified, uncomplicated; Z88.0 Allergy status to penicillin; Z91.018 Allergy to other foods; Z79.899 Other long term (current) drug therapy; Y83.2 Surgical operation with anastomosis, bypass or graft as the cause of abnormal reaction of the patient, or of later complication, without mention of misadventure at the time of the procedure; Y92.89 Other specified places as the place of occurrence of the external cause
CPT/HCPCS: 36415; 36905; 80048; 85025; 85610; 99152; 99153; C1769; J1200; J1644; J2997; J3010; J3490; J7030; Q9967; A4620; A6213; A6449; C1726; C1757; C1894

== ENCOUNTER 2024-03-22 08:35 | Emergency (ER) | payer MEDICARE, MEDICAID ==
[~2024-03-22] VITALS: Ht 172.7 cm; Wt 72.2 kg
[~2024-03-22 08:35] MED LIST changes: -AMLO10TA13 PO; +CINA30TA2 PO; -CLON-529 PO; -CLON0.1T2 PO; +CLONIDINE 0.1 MG; -LABE300T4 PO; -NOR5T PO; -OMEP20CA15 PO; -ONDA4TAB6 PO
[2024-03-22 08:53] VITALS: TEMP 98.6
[2024-03-22] MEDS ORDERED: AMOX875T10 PO (09:55)
[2024-03-22 10:17] VITALS: BP 124/65; PULSE 82; RESP 15; O2SAT 98
== END 2024-03-22 10:18 | disposition home or self-care (01) ==
LOC: ER 08:36
DX: K04.7 Periapical abscess without sinus (principal); I12.9 Hypertensive chronic kidney disease with stage 1 through stage 4 chronic kidney disease, or unspecified chronic kidney disease; N18.9 Chronic kidney disease, unspecified; F12.90 Cannabis use, unspecified, uncomplicated; Z88.0 Allergy status to penicillin; Z91.018 Allergy to other foods; Z79.899 Other long term (current) drug therapy
CPT/HCPCS: 99283